=== PATIENT | male | born 1950 | race Caucasian/White ===

== ENCOUNTER → 2017-07-14 | Outpatient (CLI) | payer MEDICARE, BC, OTHER ==
--- NOTE | 2017-07-14 17:07 | REP ---
Bilateral inguinal ultrasound: History: Evaluate for hernia. Findings: Bilateral inguinal ultrasound is performed with and without Valsalva. The right inguinal canal measures 3.5 mm in AP dimension at rest and 4.7 mm with Valsalva. Some intra-abdominal fat is seen sliding into the canal with Valsalva on the right consistent with a tiny right inguinal hernia. No bowel content is seen. Similarly, the left inguinal canal changes from 1.7 mm AP dimension at rest to 4.1 mm with Valsalva. A small quantity of intra-abdominal fat is observed sliding into the canal with Valsalva. No bowel content. Impression: Small quantity of intra-abdominal fat is observed sliding into each inguinal canal. Very small inguinal hernia cannot be excluded. Signed by Chirag Levy MD 07/14/2017 05:25 P
== END ==
LOC: EDBD 07-12 13:00 → M RAD 15:20
PROVIDERS: ATTEND Physician Assistant
DX: K40.90 Unilateral inguinal hernia, without obstruction or gangrene, not specified as recurrent (principal)